=== PATIENT | female | born 1960 | race Caucasian/White ===

== ENCOUNTER → 2021-04-13 | Outpatient (CLI) | payer OTHER | LOC: HEART 5 13:10 | DX: J98.01 Acute bronchospasm (principal) | CPT/HCPCS: 94060 ==

== ENCOUNTER → 2021-06-24 | Outpatient (CLI) | payer OTHER | LOC: HEART 5 13:08 | DX: J44.9 Chronic obstructive pulmonary disease, unspecified (principal); R06.02 Shortness of breath | CPT/HCPCS: 94060; 94729 ==

== ENCOUNTER → 2021-07-09 | Outpatient (CLI) | payer OTHER | LOC: KOH-I 14:28 | DX: Z87.891 Personal history of nicotine dependence (principal); R91.1 Solitary pulmonary nodule | CPT/HCPCS: 71271 ==

== ENCOUNTER → 2021-07-23 | Day surgery (SDC) | payer OTHER ==
[~2021-07-23] MED LIST: AMLODIPINE BESY10 MG PO; FLAXSEED OIL1000 M1 PO; LISINOPRIL5 MG PO; METFORMIN HCL500 MG PO; OMEGA RED PO; OZEMPIC0.25 MG/0. SQ; PROAIR HFA8.5 GM INH; SINGULAIR10 MG PO; ZOCOR40 MG PO
== END | disposition home or self-care (01) ==
LOC: OR 06:15
DX: R91.8 Other nonspecific abnormal finding of lung field (principal); J44.9 Chronic obstructive pulmonary disease, unspecified; I10 Essential (primary) hypertension; E78.00 Pure hypercholesterolemia, unspecified; E11.9 Type 2 diabetes mellitus without complications; Z88.6 Allergy status to analgesic agent; E66.9 Obesity, unspecified; Z87.891 Personal history of nicotine dependence; Z79.84 Long term (current) use of oral hypoglycemic drugs; Z20.822 Contact with and (suspected) exposure to COVID-19
CPT/HCPCS: 36600; 82803; 82962; J2704; J7030

== ENCOUNTER → 2021-08-31 | Outpatient (CLI) | payer OTHER | LOC: RAD 09:10 | DX: Z00.00 Encounter for general adult medical examination without abnormal findings (principal); R91.8 Other nonspecific abnormal finding of lung field; J90 Pleural effusion, not elsewhere classified | CPT/HCPCS: 71046 ==

== ENCOUNTER → 2021-10-01 | Outpatient (CLI) | payer OTHER | LOC: MRI 11:00 | DX: D3A.090 Benign carcinoid tumor of the bronchus and lung (principal) | CPT/HCPCS: 70553; A9577 ==

== ENCOUNTER → 2021-11-04 | Outpatient (CLI) | payer OTHER | LOC: LAB 10:21 | DX: C7A.090 Malignant carcinoid tumor of the bronchus and lung (principal); D3A.090 Benign carcinoid tumor of the bronchus and lung | CPT/HCPCS: 36415; 83497; 86316 ==

== ENCOUNTER → 2021-12-23 | Outpatient (CLI) | payer OTHER | LOC: EXRD 13:35 | DX: C7A.090 Malignant carcinoid tumor of the bronchus and lung (principal); D3A.090 Benign carcinoid tumor of the bronchus and lung; R91.8 Other nonspecific abnormal finding of lung field | CPT/HCPCS: 76536 ==

== ENCOUNTER → 2022-01-06 | Outpatient (CLI) | payer OTHER | LOC: US 09:25 | DX: K76.0 Fatty (change of) liver, not elsewhere classified (principal); Z90.49 Acquired absence of other specified parts of digestive tract ==